=== PATIENT | male | born 1955 | race Caucasian/White ===

== ENCOUNTER 2016-12-23 09:45 | Day surgery (SDC) | payer OTHER ==
[2016-12-21 10:57] VITALS: BMI 31.9
[~2016-12-23 09:45] MED LIST: LACTATED RINGERS 1,000 ML IV SCH
[2016-12-23 10:25] VITALS: RESP 16; TEMP 98
[2016-12-23] MEDS ORDERED: LIDOCAINE 1% 20 ML VIAL (10MG/ML) FOR IV START INTRADERMA ONE (10:41)
[2016-12-23 11:14] LABS: Glucose,Whole Blood 147 mg/dL (75-99)
[2016-12-23] MEDS ORDERED: PROPOFOL 10 MG/ML 20 ML VIAL IV ONE (12:45)
--- NOTE | 2016-12-23 12:49 | P.GSHP ---
History of Present Illness H&P Date: 12/23/16 Chief Complaint: Rectal bleeding Patient here today for colonoscopy. He describes recent perianal discomfort with occasional rectal bleeding. No constipation. He has a history of colon polyps in the past. Past Medical History Past Medical History: Hyperlipidemia, Hypertension, Thyroid Disorder History of Any Multi-Drug Resistant Organisms: None Reported Additional Past Surgical History / Comment(s): COLONOSCOPY X 2. VASECTOMY Past Anesthesia/Blood Transfusion Reactions: No Reported Reaction Past Psychological History: No Psychological Hx Reported Smoking Status: Former smoker Past Alcohol Use History: Heavy Additional Past Alcohol Use History / Comment(s): QUIT SMOKING 2008 Past Drug Use History: None Reported - Past Family History Mother Family Medical History: No Reported History Medications and Allergies Home Medications Medication Instructions Recorded Confirmed Type Aspirin [Adult Low Dose Aspirin EC] 81 mg PO DAILY 12/21/16 12/23/16 History Levothyroxine Sodium [Synthroid] 75 mcg PO DAILY 12/21/16 12/23/16 History Multivitamin [Men's Multi-Vitamin] 1 each PO DAILY 12/21/16 12/23/16 History Simvastatin [Zocor] 40 mg PO DAILY 12/21/16 12/23/16 History Triamterene-Hctz 37.5-25Mg 1 cap PO DAILY 12/21/16 12/23/16 History [Dyazide 37.5-25 Capsule] Fluticasone/Salmeterol [Advair 1 inhalation PO BID 12/22/16 12/23/16 History 250-50 Diskus] Allergies Allergy/AdvReac Type Severity Reaction Status Date / Time No Known Allergies Allergy Verified 12/23/16 10:27 Surgical - Exam Vital Signs Temp Pulse Resp BP Pulse Ox 98.0 F 100 16 154/95 97 12/23/16 10:23 12/23/16 10:23 12/23/16 10:23 12/23/16 10:23 12/23/16 10:23 Physical exam: General: Well-developed, well-nourished HEENT: Normocephalic, sclerae nonicteric Abdomen: Nontender, nondistended Extremities: No edema Neuro: Alert and oriented Results - Labs Abnormal Lab Results - Last 24 Hours (Table) 12/23/16 Range/Units 10:38 POC Glucose (mg/dL) 147 H (75-99) mg/dL Assessment and Plan (1) Rectal bleeding Narrative/Plan: Will proceed with colonoscopy at this time. Status: Acute
--- NOTE | 2016-12-23 13:06 | P.PCN ---
Date of Procedure: 12/23/16 Procedure(s) Performed: PREOPERATIVE DIAGNOSIS: Rectal bleeding POSTOPERATIVE DIAGNOSIS: Descending colon polyp, diverticulosis PROCEDURE: Colonoscopy with snare polypectomy ANESTHESIA: MAC SURGEON: Angus Dsouza M.D. SPECIMENS: Descending colon polyp ENDOSCOPIC PROCEDURE: The patient was placed on the endoscopy table in the left decubitus position. The Olympus colonoscope was inserted into the anus and passed under direct visualization to the base of the cecum. The appendiceal orifice was visualized. From that point the scope was slowly withdrawn inspecting all surfaces carefully. There were no neoplastic inflammatory or polypoid lesions throughout the cecum, ascending, and transverse colon. In the descending colon distally there was a small polyp that was removed using the snare with cautery technique. The remainder of the descending sigmoid and rectum appeared normal. There was left-sided diverticulosis present. Digital rectal examination was normal. The patient was taken to the recovery room in stable condition per anesthesia guidelines. RECOMMENDATIONS: Await biopsy results. Follow colonoscopy anticipated in 5 years.
[2016-12-23 13:24] VITALS: BP 143/76; PULSE 84
== END 2016-12-23 13:45 | disposition home or self-care (01) ==
LOC: ORWHC2ENDO 09:45
PROVIDERS: ATTEND Surgery
DX: D12.4 Benign neoplasm of descending colon (principal); Z86.010 Personal history of colon polyps; K57.30 Diverticulosis of large intestine without perforation or abscess without bleeding; I10 Essential (primary) hypertension; E11.9 Type 2 diabetes mellitus without complications; E78.5 Hyperlipidemia, unspecified; E07.9 Disorder of thyroid, unspecified; Z87.891 Personal history of nicotine dependence; Z79.899 Other long term (current) drug therapy; Z79.82 Long term (current) use of aspirin; Z79.51 Long term (current) use of inhaled steroids
CPT/HCPCS: 88305; 45385; J2704; 99153

== ENCOUNTER → 2017-01-25 | Outpatient (CLI) | payer OTHER ==
[2017-01-25 19:53] LABS: Cholesterol 249 mg/dL (<200); HDL Cholesterol 45 mg/dL (40-60); Triglycerides 395 mg/dL (<150)
[2017-01-25 22:27] LABS: Hemoglobin A1C 7.5 % (4.2-6.1)
== END | disposition home or self-care (01) ==
LOC: MMGSC 09:07
PROVIDERS: ATTEND Family Medicine
DX: I10 Essential (primary) hypertension (principal); E78.5 Hyperlipidemia, unspecified; E11.9 Type 2 diabetes mellitus without complications
CPT/HCPCS: 36415; 80061; 82043; 83036

== ENCOUNTER → 2017-06-12 | Outpatient (CLI) | payer OTHER ==
[2017-06-12 19:04] LABS: ALT 67 U/L (21-72); AST 43 U/L (17-59); Alkaline Phosphatase 80 U/L (38-126); Anion Gap 15 mmol/L; Blood Urea Nitrogen 16 mg/dL (9-20); Calcium 10.4 mg/dL (8.4-10.2); Carbon Dioxide 25 mmol/L (22-30); Chloride 101 mmol/L (98-107); Cholesterol 224 mg/dL (<200); Glucose 253 mg/dL (74-99); HDL Cholesterol 41 mg/dL (40-60); Non-African American GFR(MDRD) >60 (>60 ml/min/1.73 sqM); Potassium 4.6 mmol/L (3.5-5.1); Sodium 141 mmol/L (137-145); Total Bilirubin 0.5 mg/dL (0.2-1.3); Total Protein 7.3 g/dL (6.3-8.2); Triglycerides 333 mg/dL (<150)
[2017-06-12 22:35] LABS: Hemoglobin A1C 8.9 % (4.2-6.1)
== END ==
LOC: MMGSC 08:32
PROVIDERS: ATTEND Family Medicine
DX: E11.9 Type 2 diabetes mellitus without complications (principal); E03.9 Hypothyroidism, unspecified; E78.5 Hyperlipidemia, unspecified; I10 Essential (primary) hypertension
CPT/HCPCS: 84439; 80061; 80053; 83036; 84443; 36415; G0103

== ENCOUNTER → 2017-08-10 | Outpatient (CLI) | payer OTHER ==
[2017-08-10 20:27] LABS: Hemoglobin A1C 8.9 % (4.2-6.1)
== END ==
LOC: MMGSC 13:46
PROVIDERS: ATTEND Family Medicine
DX: E11.9 Type 2 diabetes mellitus without complications (principal)
CPT/HCPCS: 36415; 83036

== ENCOUNTER → 2017-11-09 | Outpatient (CLI) | payer OTHER ==
[2017-11-09 18:27] LABS: ALT 51 U/L (21-72); AST 31 U/L (17-59); Alkaline Phosphatase 65 U/L (38-126); Anion Gap 12 mmol/L; Blood Urea Nitrogen 17 mg/dL (9-20); Calcium 10.9 mg/dL (8.4-10.2); Carbon Dioxide 29 mmol/L (22-30); Chloride 101 mmol/L (98-107); Cholesterol 207 mg/dL (<200); Glucose 128 mg/dL (74-99); HDL Cholesterol 43 mg/dL (40-60); Non-African American GFR(MDRD) >60 (>60 ml/min/1.73 sqM); Potassium 5.2 mmol/L (3.5-5.1); Sodium 142 mmol/L (137-145); Total Bilirubin 0.5 mg/dL (0.2-1.3); Total Protein 7.5 g/dL (6.3-8.2)
== END ==
LOC: MMGSC 10:28
PROVIDERS: ATTEND Family Medicine
DX: E11.9 Type 2 diabetes mellitus without complications (principal); E78.5 Hyperlipidemia, unspecified; I10 Essential (primary) hypertension
CPT/HCPCS: 36415; 80053; 80061; 83036

== ENCOUNTER → 2018-02-08 | Outpatient (CLI) | payer OTHER ==
[2018-02-08 19:24] LABS: ALT 41 U/L (21-72); AST 39 U/L (17-59); Albumin 4.7 g/dL (3.5-5.0); Alkaline Phosphatase 69 U/L (38-126); Anion Gap 14 mmol/L; Blood Urea Nitrogen 20 mg/dL (9-20); Calcium 10.2 mg/dL (8.4-10.2); Carbon Dioxide 27 mmol/L (22-30); Chloride 103 mmol/L (98-107); Cholesterol 179 mg/dL (<200); Glucose 138 mg/dL (74-99); HDL Cholesterol 45 mg/dL (40-60); LDL Cholesterol,Calculated 96 mg/dL (0-99); Potassium 4.9 mmol/L (3.5-5.1); Sodium 144 mmol/L (137-145); Total Bilirubin 0.6 mg/dL (0.2-1.3); Total Protein 7.6 g/dL (6.3-8.2); Triglycerides 191 mg/dL (<150)
[2018-02-09 04:03] LABS: Hemoglobin A1C 6.3 % (4.0-6.0)
== END | disposition home or self-care (01) ==
LOC: MMGSC 09:18
PROVIDERS: ATTEND Family Medicine
DX: E78.5 Hyperlipidemia, unspecified (principal); E11.9 Type 2 diabetes mellitus without complications
CPT/HCPCS: 36415; 80053; 80061; 83036

== ENCOUNTER 2023-04-30 05:43 | Emergency (ER) | payer MEDICARE, OTHER ==
[2023-04-30] MEDS ORDERED: KETOROLAC 15 MG/ML 1 ML VIAL IVP STA (06:44)
[2023-04-30] MEDS ORDERED: ORPHENADRINE 30 MG/ML 2 ML VIAL IVP STA (06:44)
--- NOTE | 2023-04-30 06:51 | ED ---
Back Pain HPI - General Chief Complaint: Back Pain/Injury Stated Complaint: Back pain Time Seen by Provider: 04/30/23 06:51 Source: EMS - History of Present Illness Initial Comments: Patient is a pleasant 68-year-old male presenting to the emergency room with complaints of progressively worsening chronic lower back pain over the last few days without any new trauma or injury that he is aware of. He reports that he has had sciatica in the past but his lower back pain shooting down for to his buttocks region this morning brought him to his knees and he had difficulty getting up consequently he called EMS to bring him to the emergency room. He denies any overt weakness or range of motion impairment not directly related pain, bowel or bladder incontinence, saddle or other red flag symptoms caudia equina. He reports a history of a compaction fracture in the past along with hypertension and hyperlipidemia. - Related Data Home Medications Medication Instructions Recorded Confirmed Aspirin [Adult Low Dose Aspirin EC] 81 mg PO DAILY 12/21/16 12/23/16 Levothyroxine Sodium [Synthroid] 75 mcg PO DAILY 12/21/16 12/23/16 Multivitamin [Men's Multi-Vitamin] 1 each PO DAILY 12/21/16 12/23/16 Simvastatin [Zocor] 40 mg PO DAILY 12/21/16 12/23/16 Triamterene-Hctz 37.5-25Mg 1 cap PO DAILY 12/21/16 12/23/16 [Dyazide 37.5-25 Capsule] Fluticasone Propion/Salmeterol 1 inhalation PO BID 12/22/16 12/23/16 [Advair 250-50 Diskus] Previous Rx's Medication Instructions Recorded Cyclobenzaprine HCl 10 mg PO TID PRN 7 Days #21 tab 04/30/23 Ketorolac [Toradol] 10 mg PO Q8H PRN 5 Days #15 tab 04/30/23 Allergies Allergy/AdvReac Type Severity Reaction Status Date / Time No Known Allergies Allergy Verified 12/23/16 10:27 Review of Systems ROS Statement: Those systems with pertinent positive or pertinent negative responses have been documented in the HPI. ROS Other: All systems not noted in ROS Statement are negative. Past Medical History Past Medical History: Hyperlipidemia, Hypertension, Thyroid Disorder History of Any Multi-Drug Resistant Organisms: None Reported Additional Past Surgical History / Comment(s): COLONOSCOPY X 2. VASECTOMY Past Anesthesia/Blood Transfusion Reactions: No Reported Reaction Past Psychological History: No Psychological Hx Reported Past Alcohol Use History: Heavy Additional Past Alcohol Use History / Comment(s): QUIT SMOKING 2008 Past Drug Use History: None Reported - Past Family History Mother Family Medical History: No Reported History General Exam - General Exam Comments Initial Comments: GENERAL: No acute distress, well developed, well nourished. HEENT: Normocephalic, atraumatic. Pupils equal, round, reactive to light. Moist mucous membranes. LUNGS: No respiratory distress or use of accessory muscles. HEART: Regular rate.. ABDOMEN: Non-distended. BACK: Normal inspection. no point vertebral tenderness. no muscle spasms or paraspinal tenderness. EXTREMITIES: No edema. No tenderness. Moves all extremities. lower extremity range of motion limited due to pain. NEUROLOGIC: Alert & oriented x 3. CN II-XII grossly intact. PSYCHIATRIC: Normal affect and behavior. DERMATOLOGIC: Skin intact, without rashes or lesions noted. Limitations: physical limitation Course Vital Signs 04/30/23 08:59 Pulse Rate 80 Respiratory 18 Rate Blood Pressure 166/99 O2 Sat by Pulse 97 Oximetry Medical Decision Making - Medical Decision Making Was pt. sent in by a medical professional or institution (, PA, T[employer] [facility], urgent care, hospital, or fpc...) When possible be specific @ -[No] Did you speak to anyone other than the patient for history (EMS, parent, family, police, friend...)? What history was obtained from this source @ -[No] Did you review nursing and triage notes (agree or disagree)? Why? @ -[I reviewed and agree with nursing and triage notes] Were old charts reviewed (outside hosp., previous admission, EMS record, old EKG, old radiological studies, urgent care reports/EKG's, fpc records)? Report findings @ -[No old charts were reviewed] Differential Diagnosis (chest pain, altered mental status, abdominal pain women, abdominal pain men, vaginal bleeding, weakness, fever, dyspnea, syncope, headache, dizziness, GI bleed, back pain, seizure, CVA, palpatations, mental health, musculoskeletal)? @ -Differential Back Pain: Strain, zoster, cauda equina syndrome, epidural abscess, vertebral osteomyelitis, discitis, fracture, subluxation, disc herniation, DJD, spinal stenosis, dissection, AAA, pancreatitis, peptic ulcer disease, pyelonephritis, kidney stone, this is not meant to be an all-inclusive list. EKG interpreted by me (3pts min.). @ -[None done] X-rays interpreted by me (1pt min.). @ -X-ray lumbar spine multi-level disc disease without acute fracture or subluxation. Per radiologist report minimal anterior wedging of L4 which is chronic and present in 2014. CT interpreted by me (1pt min.). @ -[None done] U/S interpreted by me (1pt. min.). @ -[None done] What testing was considered but not performed or refused? (CT, X-rays, U/S, labs)? Why? @ -[None] What meds were considered but not given or refused? Why? @ -[None] Did you discuss the management of the patient with other professionals (professionals i.e. , PA, [employer], lab, RT, psych nurse, social sciences professor, granulator, teacher, [place] customs and border officer, case assembler)? Give summary @ -[No] Was smoking cessation discussed for >3mins.? @ -[No] Was critical care preformed (if so, how long)? @ -[No] Were there social determinants of health that impacted care today? How? (Homelessness, low income, unemployed, alcoholism, drug addiction, transportation, low edu. Level, literacy, decrease access to med. care, halfway, rehab)? @ -[No] Was there de-escalation of care discussed even if they declined (Discuss DNR or withdrawal of care, Hospice)? DNR status @ -[No] What co-morbidities impacted this encounter? (DM, HTN, Smoking, COPD, CAD, Cancer, CVA, ARF, Chemo, Hep., AIDS, mental health diagnosis, sleep apnea, morbid obesity)? @ -[None] Was patient admitted / discharged? Hospital course, mention meds given and route, prescriptions, significant lab abnormalities, going to OR and other pertinent info. @ -68-year-old male presenting to the emergency room with complaints of progressively worsening chronic lower back pain over the last few days without any new trauma or injury that he is aware of. He reports that he has had sciatica in the past but his lower back pain shooting down for to his buttocks region this morning brought him to his knees and he had difficulty getting up consequently he called EMS to bring him to the emergency room. He denies any overt weakness or range of motion impairment not directly related pain, bowel or bladder incontinence, saddle or other red flag symptoms caudia equina. Advise due to lack of trauma no indication for x-ray however patient is very concerned and would like an x-ray to be taken. Will proceed with x-ray of the lumbar spine along with treating of back pain with Toradol and Norflex. X-ray negative for acute findings. Pain significantly improved with Toradol and Norflex. Advised likely strain of lumbar back with acute on chronic back pain will prescribe Toradol along with muscle relaxer to utilize as needed. Advised not to operate machinery or drive until he knows how muscle relaxer will affect him. Advised not to take NSAIDs while taking Toradol. Range of motion as tolerated encouraged. Avoidance of heavy lifting and bedrest also encouraged. Advise follow-up with primary care provider. Questions and concerns answered. Return parameters to the emergency room discussed. Will discharge home in stable condition on Toradol and Flexeril as needed for strain of the lumbar back with acute on chronic back pain advising follow-up with primary care provider. Undiagnosed new problem with uncertain prognosis? @ -[No] Drug Therapy requiring intensive monitoring for toxicity (Heparin, Nitro, Insulin, Cardizem)? @ -[No] Were any procedures done? @ -[No] Diagnosis/symptom? @ -Strain of lumbar region Acute, or Chronic, or Acute on Chronic? @ -Acute on chronic Uncomplicated (without systemic symptoms) or Complicated (systemic symptoms)? @ -Uncomplicated Side effects of treatment? @ -[No] Exacerbation, Progression, or Severe Exacerbation? @ -[No] Poses a threat to life or bodily function? How? (Chest pain, [place], [place], pneumonia, PE, COPD, DKA, ARF, appy, cholecystitis, CVA, Diverticulitis, Homicidal, Suicidal, threat to staff... and all critical care pts) @ -[No] Case discussed with Dr. Vega - Radiology Data Radiology results: report reviewed, image reviewed Disposition Clinical Impression: Strain of lumbar region Disposition: HOME SELF-CARE Condition: Stable Instructions (If sedation given, give patient instructions): Chronic Back Pain (DC), Lower Back Exercises (ED) Additional Instructions: Utilize muscle relaxer and Toradol as needed for pain. Do not drive or operate machinery into the muscle relaxer will affect you. Do not take other anti- inflammatory such as Motrin while taking Toradol. May take Tylenol as needed with Toradol. Avoid bed rest and heavy lifting. Low back stretches and exercises may be helpful to reduce pain levels in the future. Please follow-up with your primary care provider. Please return to the Emergency Department if symptoms worsen or any other concerns. Prescriptions: Cyclobenzaprine HCl 10 mg PO TID PRN 7 Days #21 tab PRN Reason: Spasms Ketorolac [Toradol] 10 mg PO Q8H PRN 5 Days #15 tab PRN Reason: Pain Is patient prescribed a controlled substance at d/c from ED?: No Referrals: Nonstaff,Physician [REFERRING] - 1-2 days Time of Disposition: 08:14
--- NOTE | 2023-04-30 07:52 | XR ---
EXAMINATION TYPE: XR lumbosacral spine 5 views DATE OF EXAM: 04/30/2023 Comparison: Chest x-ray 11/23/2013 Clinical History: 68-year-old male pain Findings: Right retropulsion. 5 lumbar type vertebral bodies. Facet arthropathy lower lumbar spine. Minimal ant erior wedging of L1 is age-indeterminate. Degenerative grade 1 retrolisthesis and L2-L3 and L3-L4. Re maining alignment is maintained. Scattered mild degenerative disc disease. Impression: 1. Minimal anterior wedging of L1 is suspected chronic. Appears to have been present in 2013. 2. Otherwise, no additional vertebral compression deformity. There is facet arthropathy lower lumbar spine and mild multilevel degenerative disc disease. 3. Degenerative grade 1 retrolistheses L2-L3 and L3-L4.
[2023-04-30 09:00] VITALS: BP 166/99; PULSE 80; RESP 18
== END 2023-04-30 09:00 | disposition home or self-care (01) ==
LOC: EC 05:43
DX: S39.012A Strain of muscle, fascia and tendon of lower back, initial encounter (principal); M43.16 Spondylolisthesis, lumbar region; M47.816 Spondylosis without myelopathy or radiculopathy, lumbar region; M51.36 Other intervertebral disc degeneration, lumbar region; E78.5 Hyperlipidemia, unspecified; I10 Essential (primary) hypertension; E07.9 Disorder of thyroid, unspecified; Z79.890 Hormone replacement therapy; Z79.899 Other long term (current) drug therapy; Z79.82 Long term (current) use of aspirin; X58.XXXA Exposure to other specified factors, initial encounter
CPT/HCPCS: 72110; 99283; 96374; 96375; J2360; J1885